=== PATIENT | female | born 1935 | race African-American/Black ===

== ENCOUNTER 2019-01-23 05:52 | Inpatient (IN) ==
[2019-01-23] MEDS ORDERED: diphenhydrAMINE CAP 25 MG CAPSULE PO ONE (05:59)
[2019-01-23] MEDS ORDERED: POTASSIUM CHLORIDE RIDER 10 MEQ in PREMIX 1 EACH IV PRN (05:59)
[2019-01-23] MEDS ORDERED: DIAZEPAM 5 MG TABLET PO ONE (05:59)
[2019-01-23] MEDS ORDERED: MAGNESIUM SULF RIDER 2 GM in PREMIX 1 EACH IV PRN (05:59)
[2019-01-23] MEDS ORDERED: ASPIRIN 325 MG TABLET PO ONE (05:59)
[2019-01-23] MEDS ORDERED: HEPARIN/NACL 0.9% 2 UNITS/ML 1,000 ML IV ONE (06:41)
[2019-01-23] MEDS ORDERED: LIDOCAINE 1% 20 ML VIAL ONE (06:41)
[2019-01-23] MEDS ORDERED: diphenhydrAMINE CAP 25 MG CAPSULE ONE (07:01)
[2019-01-23] MEDS ORDERED: DIAZEPAM 5 MG TABLET ONE (07:01)
[2019-01-23] MEDS ORDERED: ASPIRIN 325 MG TABLET ONE (07:01)
[2019-01-23] MEDS: SODIUM CHLORIDE 0.9% 1,000 ML IV SCH ×3 (07:02→15:05)
[2019-01-23] MEDS ORDERED: HYDROmorphone 2 MG/1 ML VIAL ONE (07:29)
[2019-01-23] MEDS ORDERED: MIDAZOLAM 2 MG/2 ML VIAL ONE (07:56)
[2019-01-23] MEDS ORDERED: ZALEPLON 5 MG CAPSULE PO PRN (08:00)
[2019-01-23] MEDS ORDERED: ONDANSETRON 4 MG/2 ML VIAL IV PRN (08:00)
[2019-01-23] MEDS ORDERED: NITROGLYCERIN SL 0.4 MG TABLET SL PRN (08:00)
[2019-01-23] MEDS: CALCIUM (CARBONATE) 600 MG TABLET PO SCH (15:03)
[2019-01-23] MEDS: ASPIRIN CHEW 81 MG TABLET PO SCH (15:03)
[2019-01-23] MEDS: MULTIVITAMIN (CENTRUM) TABLET PO SCH (15:04)
[2019-01-23] MEDS: GLUCOSAMINE 500 MG TABLET PO SCH (15:04)
[2019-01-23] MEDS: LISINOPRIL/HCTZ 20-12.5 MG TABLET PO SCH ×2 (15:04→21:03)
[2019-01-23] MEDS: OMEGA 3 ACID ETHYL ESTERS 1 GM CAPSULE PO SCH (15:04)
[2019-01-23] MEDS: METOPROLOL SUCCINATE XL 100 MG TABLET PO SCH ×2 (15:05→21:04)
[2019-01-23] MEDS ORDERED: SIMVASTATIN 10 MG TABLET PO SCH (19:00)
[2019-01-23] MEDS ORDERED: POTASSIUM CITRATE 10 MEQ TABLET PO SCH (19:00)
[2019-01-23] MEDS ORDERED: amLODIPine 10 MG TABLET PO SCH (19:00)
[2019-01-23] MEDS: POTASSIUM CITRATE 10 MEQ TABLET PO SCH (21:03)
[2019-01-23] MEDS: SIMVASTATIN 10 MG TABLET PO SCH (21:04)
[2019-01-23] MEDS: amLODIPine 10 MG TABLET PO SCH (21:04)
[2019-01-24] MEDS: SODIUM CHLORIDE 0.9% 1,000 ML IV SCH ×8 (02:38→23:21)
[2019-01-24] MEDS: GLUCOSAMINE 500 MG TABLET PO SCH (08:35)
[2019-01-24] MEDS: CALCIUM (CARBONATE) 600 MG TABLET PO SCH (08:36)
[2019-01-24] MEDS: OMEGA 3 ACID ETHYL ESTERS 1 GM CAPSULE PO SCH (08:36)
[2019-01-24] MEDS: ASPIRIN CHEW 81 MG TABLET PO SCH (08:36)
[2019-01-24] MEDS: METOPROLOL SUCCINATE XL 100 MG TABLET PO SCH ×2 (08:36→20:48)
[2019-01-24] MEDS: LISINOPRIL/HCTZ 20-12.5 MG TABLET PO SCH ×2 (08:36→20:48)
[2019-01-24] MEDS: MULTIVITAMIN (CENTRUM) TABLET PO SCH (08:36)
[2019-01-24] MEDS ORDERED: DEXTROSE 50% 25 GM/50 ML VIAL IV PRN (10:12)
[2019-01-24] MEDS ORDERED: GLUCAGON 1 MG VIAL IM PRN (10:12)
[2019-01-24 10:30] LABS: Basophils # 0.1 10*3/uL (0.0-0.2); Basophils % 0.7 % (0.0-0.8); Eosinophils # 0.2 10*3/uL (0.0-0.87); Eosinophils % 3.2 % (0.00-10.9); Hematocrit 43.3 VOL% (35.7-47.0); Hemoglobin 13.8 GM/DL (12.0-16.0); Immature Granulocytes % 0.6 %; Immature Granulocytes Absolute 0.04 #; Lymphocytes # 1.7 10*3/uL (1.4-4.0); Mean Corpuscular HGB Conc 31.9 GM/DL (32-36); Mean Corpuscular Volume 92.9 FL (87-102); Mean Platelet Volume 11.9 FL (9.6-12.0); Monocytes % 7.7 % (1.7-12.7); Neutrophils % 64.8 % (38.7-73.9); Platelet Count 112 T/CUMM (130-400); Red Blood Count 4.66 MC/CUMM (3.8-5.5); Red Cell Distribution Width 13.1 % (9.3-17.3); White Blood Count 7.2 T/CUMM (4-12)
[2019-01-24 10:42] LABS: Bilirubin,Total 0.6 MG/DL (0.2-1.0); Calcium 8.1 MG/DL (8.5-10.1)
[2019-01-24 10:43] LABS: Albumin 3.4 G/DL (3.4-5.0); Osmolality,Calculated 285.4 MOS/KG (273-304)
[2019-01-24 11:14] LABS: ABG Base Excess 0.1 MMOL/L (-2.5-2.5); ABG HCO3 24.5 MMOL/L (20-26); ABG Oxygen Saturation 96.4 % (95-100); ABG PH 7.414 (7.35-7.45); ABG PO2 84.5 MM HG (80-95); ABG TCO2 20.7 MMOL/L (23-27); Allen Test Positive; Pt O2 Delivery Device Room Air
[2019-01-24] MEDS: CHLORHEXIDINE 4% SOLN 118 ML BOTTLE TOP SCH ×2 (15:30→20:49)
[2019-01-24] MEDS ORDERED: hydrALAZINE 20 MG/1 ML VIAL IV PRN (16:06)
[2019-01-24] MEDS ORDERED: DIAZEPAM 5 MG TABLET PO ONE (16:42)
[2019-01-24] MEDS: amLODIPine 10 MG TABLET PO SCH (20:48)
[2019-01-24] MEDS: CHLORHEXIDINE 0.12% ORAL RINSE 60 ML BOTTLE SWISH/SPIT SCH (20:49)
[2019-01-24] MEDS: SIMVASTATIN 10 MG TABLET PO SCH (20:49)
[2019-01-24] MEDS: POTASSIUM CITRATE 10 MEQ TABLET PO SCH (20:55)
[2019-01-25] MEDS: SODIUM CHLORIDE 0.9% 1,000 ML IV SCH ×4 (02:43→12:21)
[2019-01-25] MEDS ORDERED: PAPAVERINE 60 MG/2 ML VIAL ONE (04:20)
[2019-01-25] MEDS ORDERED: VANCOMYCIN 1,000 MG VIAL ONE (04:21)
[2019-01-25] MEDS: CHLORHEXIDINE 4% SOLN 118 ML BOTTLE TOP SCH ×2 (04:40→12:22)
[2019-01-25] MEDS ORDERED: DIAZEPAM 5 MG TABLET PO ONE (06:00)
[2019-01-25] MEDS ORDERED: MIDAZOLAM 10 MG/2 ML VIAL ONE (06:18)
[2019-01-25] MEDS ORDERED: SUFentanil 250 MCG/5 ML AMP ONE (06:18)
[2019-01-25] MEDS: LISINOPRIL/HCTZ 20-12.5 MG TABLET PO SCH ×2 (06:25→12:21)
[2019-01-25] MEDS: METOPROLOL SUCCINATE XL 100 MG TABLET PO SCH ×2 (06:25→12:21)
[2019-01-25] MEDS ORDERED: CEFUROXIME INJ 1,500 MG in SYRINGE 1 EACH IV ONE (07:00)
[2019-01-25 07:53] LABS: ABG Base Excess -0.3 MMOL/L (-2.5-2.5); ABG HCO3 24.2 MMOL/L (20-26); ABG Oxygen Saturation 99.7 % (95-100); ABG PH 7.424 (7.35-7.45); ABG TCO2 20.2 MMOL/L (23-27); Glucose Heart Surgery 210 MG/DL (74-106); Hematocrit Heart Surgery 43.4 PERCENT (37-47); Hemoglobin Heart Surgery 14.1 G/DL (12.0-16.0); Ionized Calcium Arterial 1.21 MMOL/L (1.21-1.46); PH Patient Temp Arterial 7.424; Patient Temperature 37 CELCIUS; Potassium Heart/CVR 3.3 MMOL/L (3.5-5.1); Sodium Heart/CVR 137 MMOL/L (135-145)
[2019-01-25] MEDS ORDERED: NITROPRUSSIDE 50 MG/2 ML VIAL ONE (07:58)
[2019-01-25] MEDS ORDERED: CALCIUM CHLORIDE 1,000 MG/10 ML SYRINGE IV ONE (07:58)
[2019-01-25] MEDS ORDERED: SODIUM BICARBONATE 50 MEQ/50 ML VIAL IV ONE ×2 (07:58→11:49)
[2019-01-25] MEDS ORDERED: PHENYLEPHRINE DRIP 40 MG/250 ML PREMIX IV ONE (07:58)
[2019-01-25] MEDS ORDERED: EPINEPHrine 1 MG/10 ML SYRINGE ONE (07:59)
[2019-01-25] MEDS ORDERED: ATROPINE 1 MG/10 ML SYRINGE ONE (08:00)
[2019-01-25 08:22] LABS: Apearance,Urine Slightly Hazy (Clear); Bacteria,Urine Moderate /HPF (Few); Bilirubin,Urine Negative (Negative); Blood, Urine Small mg/dL (Negative); Glucose,Urine (UA) Negative (Negative); Ketones,Urine 5 mg/dL (Negative); Mucus,Urine Occasional /LPF (Occasional); Nitrite,Urine Positive (Negative); Protein,Urine 30 MG/DL; RBC,Urine 1 /HPF (0-4); Squamous Epithelial Cell,Urine Few /HPF (0-10); Urine Color Yellow (Yellow); Urine Specific Gravity 1.015 (1.001-1.035); Urine Urobilinogen < 2.0 EU/DL (0.2-1.0); WBC,Urine 6 /HPF (0-6)
[2019-01-25 09:27] LABS: Hematocrit Heart Surgery 23.5 PERCENT (37-47); Hemoglobin Heart Surgery 7.5 G/DL (12.0-16.0); PCO2 Patient Temp Venous 27.6 MM HG; PH Patient Temp Venous 7.517; PO2 Patient Temp Venous 45.2 MM HG; Potassium Heart/CVR 3.8 MMOL/L (3.5-5.1); VBG HCO3 24.3 MEQ/L (24-28); VBG Oxygen Saturation 89.3 %; VBG PCO2 30.4 MMHG (41-51); VBG PH 7.486; VBG PO2 51.7 MMHG (17-40)
[2019-01-25 09:59] LABS: Hemoglobin Heart Surgery 8.5 G/DL (12.0-16.0); PCO2 Patient Temp Venous 24.5 MM HG; PH Patient Temp Venous 7.548; PO2 Patient Temp Venous 44.5 MM HG; Potassium Heart/CVR 3.3 MMOL/L (3.5-5.1); VBG Base Excess -1.3 MEQ/L (0-4); VBG HCO3 21.6 MEQ/L (24-28); VBG Oxygen Saturation 91.1 %; VBG PCO2 29.2 MMHG (41-51); VBG PH 7.487; VBG PO2 58.7 MMHG (17-40)
[2019-01-25 10:25] LABS: Hematocrit Heart Surgery 26.8 PERCENT (37-47); Hemoglobin Heart Surgery 8.6 G/DL (12.0-16.0); PCO2 Patient Temp Venous 30.5 MM HG; PH Patient Temp Venous 7.525; PO2 Patient Temp Venous 45.1 MM HG; Potassium Heart/CVR 4.1 MMOL/L (3.5-5.1); VBG Base Excess 2.7 MEQ/L (0-4); VBG HCO3 26.6 MEQ/L (24-28); VBG Oxygen Saturation 85.3 %; VBG PCO2 30.5 MMHG (41-51); VBG PH 7.525; VBG PO2 45.1 MMHG (17-40)
[2019-01-25 10:58] LABS: Hematocrit Heart Surgery 26.1 PERCENT (37-47); Hemoglobin Heart Surgery 8.4 G/DL (12.0-16.0); PCO2 Patient Temp Venous 31.2 MM HG; PH Patient Temp Venous 7.5; PO2 Patient Temp Venous 46.3 MM HG; Potassium Heart/CVR 3.8 MMOL/L (3.5-5.1); VBG Base Excess 1.6 MEQ/L (0-4); VBG HCO3 25.6 MEQ/L (24-28); VBG Oxygen Saturation 85.4 %; VBG PCO2 31.2 MMHG (41-51); VBG PH 7.5; VBG PO2 46.3 MMHG (17-40)
[2019-01-25 11:35] LABS: ABG Base Excess 0.1 MMOL/L (-2.5-2.5); ABG HCO3 24.6 MMOL/L (20-26); ABG Oxygen Saturation 99.8 % (95-100); ABG PCO2 33.8 MM HG (35-48); ABG PH 7.454 (7.35-7.45); ABG TCO2 21.8 MMOL/L (23-27); Glucose Heart Surgery 275 MG/DL (74-106); Hematocrit Heart Surgery 27.3 PERCENT (37-47); Hemoglobin Heart Surgery 8.8 G/DL (12.0-16.0); Ionized Calcium Arterial 1.27 MMOL/L (1.21-1.46); PCO2 Patient Temp Arterial 33.8 MMHG; PH Patient Temp Arterial 7.454; Patient Temperature 37 CELCIUS; Potassium Heart/CVR 3.5 MMOL/L (3.5-5.1); Sodium Heart/CVR 135 MMOL/L (135-145)
[2019-01-25] MEDS ORDERED: DEXTROSE 5% KCL 20 MEQ 20 MEQ/1,000 ML BAG IV ONE (11:49)
[2019-01-25] MEDS ORDERED: PROTAMINE SULFATE 250 MG/25 ML VIAL IV ONE (11:49)
[2019-01-25] MEDS ORDERED: MANNITOL 100 GM/500 ML BAG IV ONE (11:49)
[2019-01-25] MEDS ORDERED: ALBUMIN 25% 25 GM/100 ML VIAL IV ONE (11:49)
[2019-01-25] MEDS ORDERED: ALBUMIN 5% 12.5 GM/250 ML VIAL IV ONE (11:50)
[2019-01-25] MEDS ORDERED: HEPARIN 10,000 UNIT/10 ML VIAL ONE (11:50)
[2019-01-25] MEDS ORDERED: FUROSEMIDE 20 MG/2 ML VIAL ONE (11:50)
[2019-01-25] MEDS ORDERED: methylPREDNISolone SOD SUC 1,000 MG/8 ML VIAL ONE (11:50)
[2019-01-25] MEDS ORDERED: MAGNESIUM SULFATE 5 GM/10 ML VIAL IV ONE (11:50)
[2019-01-25] MEDS ORDERED: POTASSIUM CHLORIDE RIDER 100 ML IV ONE (11:50)
[2019-01-25] MEDS ORDERED: POTASSIUM CHLORIDE 20 MEQ/10 ML VIAL ONE (11:50)
[2019-01-25] MEDS ORDERED: PROTAMINE SULFATE 50 MG/5 ML VIAL IV ONE (11:50)
[2019-01-25] MEDS: CHLORHEXIDINE 0.12% ORAL RINSE 60 ML BOTTLE SWISH/SPIT SCH ×2 (12:21→21:10)
[2019-01-25] MEDS: ASPIRIN CHEW 81 MG TABLET PO SCH (12:22)
[2019-01-25] MEDS: CALCIUM (CARBONATE) 600 MG TABLET PO SCH (12:22)
[2019-01-25] MEDS: OMEGA 3 ACID ETHYL ESTERS 1 GM CAPSULE PO SCH (12:22)
[2019-01-25] MEDS: GLUCOSAMINE 500 MG TABLET PO SCH (12:22)
[2019-01-25] MEDS: MULTIVITAMIN (CENTRUM) TABLET PO SCH (12:23)
[2019-01-25] MEDS ORDERED: MIDAZOLAM 2 MG/2 ML VIAL IV PRN (13:08)
[2019-01-25] MEDS ORDERED: MIDAZOLAM 10 MG/2 ML VIAL IV PRN (13:08)
[2019-01-25] MEDS ORDERED: MAGNESIUM SULF RIDER 4 GM in PREMIX 1 EACH IV PRN (13:08)
[2019-01-25] MEDS ORDERED: INSULIN REGULAR 100 UNIT/ML IV PRN (13:08)
[2019-01-25] MEDS ORDERED: INSULIN REGULAR 100 UNIT/ML IV ONE (13:08)
[2019-01-25] MEDS ORDERED: PHENYLEPHRINE DRIP 40 MG/250 ML PREMIX IV PRN (13:08)
[2019-01-25] MEDS ORDERED: ONDANSETRON 4 MG/2 ML VIAL IV PRN (13:08)
[2019-01-25] MEDS ORDERED: DEXTROSE 50% 25 GM/50 ML SYRINGE IV PRN ×2 (13:08)
[2019-01-25] MEDS ORDERED: MAGNESIUM SULF RIDER 2 GM in PREMIX 1 EACH IV PRN (13:08)
[2019-01-25] MEDS ORDERED: MORPHINE 4 MG/1 ML VIAL IV PRN (13:08)
[2019-01-25] MEDS ORDERED: NITROPRUSSIDE 100 MG in DEXTROSE 5% 250 ML IV PRN (13:08)
[2019-01-25] MEDS ORDERED: INSULIN REGULAR DRIP 100 ML IV SCH (13:08)
[2019-01-25] MEDS ORDERED: ACETAMINOPHEN 650 MG SUPP RECTAL PRN (13:08)
[2019-01-25] MEDS ORDERED: MORPHINE 10 MG/1 ML VIAL IV PRN (13:08)
[2019-01-25] MEDS ORDERED: POTASSIUM CHLORIDE RIDER 10 MEQ in PREMIX 1 EACH IV PRN (13:08)
[2019-01-25] MEDS ORDERED: VECURONIUM 10 MG VIAL IV PRN ×2 (13:08)
[2019-01-25] MEDS ORDERED: CALCIUM CHLORIDE 1,000 MG/10 ML SYRINGE IV PRN (13:08)
[2019-01-25 13:14] LABS: ABG Base Excess -0.6 MMOL/L (-2.5-2.5); ABG HCO3 23.9 MMOL/L (20-26); ABG Oxygen Saturation 98.9 % (95-100); ABG PCO2 32.8 MM HG (35-48); ABG PH 7.451 (7.35-7.45); ABG TCO2 20.6 MMOL/L (23-27); Glucose Heart Surgery 260 MG/DL (74-106); Hemoglobin Heart Surgery 10.3 G/DL (12.0-16.0); Potassium Heart/CVR 3.5 MMOL/L (3.5-5.1)
[2019-01-25 13:19] LABS: INR 1.3; PT Patient Result 14.5 SECS; Partial Thromboplastin Time 30.3 SECS (0-40)
[2019-01-25 13:21] LABS: Basophils % 0.3 % (0.0-0.8); Eosinophils # 0.1 10*3/uL (0.0-0.87); Eosinophils % 0.7 % (0.00-10.9); Hematocrit 30.3 VOL% (35.7-47.0); Immature Granulocytes % 0.8 %; Lymphocytes # 1.4 10*3/uL (1.4-4.0); Lymphocytes % 10.9 % (21.3-54.2); Mean Corpuscular HGB Conc 33.7 GM/DL (32-36); Mean Corpuscular Volume 90.7 FL (87-102); Mean Platelet Volume 11.3 FL (9.6-12.0); Monocytes % 5.2 % (1.7-12.7); Neutrophils % 82.1 % (38.7-73.9)
[2019-01-25 13:22] LABS: Hemoglobin 10.2 GM/DL (12.0-16.0); Platelet Count 100 T/CUMM (130-400); Red Blood Count 3.34 MC/CUMM (3.8-5.5); White Blood Count 12.4 T/CUMM (4-12)
[2019-01-25] MEDS: SODIUM CHLORIDE 0.45% 1,000 ML IV SCH ×2 (13:27→13:28)
[2019-01-25] MEDS: KETOROLAC 30 MG/1 ML VIAL IV SCH ×2 (13:32→18:11)
[2019-01-25] MEDS ORDERED: LIDOCAINE 1% 5 ML VIAL ONE (13:37)
[2019-01-25] MEDS ORDERED: HEPARIN/NACL 0.9% 2 UNITS/ML 500 ML IV ONE (13:37)
[2019-01-25] MEDS ORDERED: PHENYLEPHRINE DRIP 20 MG/250 ML PREMIX IV ONE (13:37)
[2019-01-25] MEDS ORDERED: SEVOFLURANE 1 UNIT/15 MINUTE INH ONE (13:37)
[2019-01-25] MEDS ORDERED: ETOMIDATE 40 MG/20 ML VIAL IV ONE (13:38)
[2019-01-25] MEDS ORDERED: EPINEPHrine 1 MG/ML VIAL ONE (13:38)
[2019-01-25] MEDS ORDERED: VECURONIUM 10 MG VIAL IV ONE (13:38)
[2019-01-25] MEDS ORDERED: NITROGLYCERIN DRIP 50 MG/250 ML BOTTLE IV ONE (13:38)
[2019-01-25] MEDS ORDERED: SODIUM CHLORIDE 0.9% 1,000 ML IV ONE (13:38)
[2019-01-25] MEDS ORDERED: AMINOCAPROIC ACID 5,000 MG/20 ML VIAL ONE (13:38)
[2019-01-25] MEDS ORDERED: LACTATED RINGERS 2,000 ML IV ONE (13:38)
[2019-01-25] MEDS ORDERED: SODIUM CHLORIDE 0.9% 100 ML IV ONE (13:38)
[2019-01-25] MEDS ORDERED: SODIUM CHLORIDE 0.9% 250 ML IV ONE (13:38)
[2019-01-25 13:41] LABS: Albumin 3.4 G/DL (3.4-5.0); Bilirubin,Total 1.5 MG/DL (0.2-1.0); Calcium 8.5 MG/DL (8.5-10.1); Osmolality,Calculated 285.5 MOS/KG (273-304); Total Protein 5.7 G/DL (6.4-8.3)
[2019-01-25 13:59] LABS: CKMB % 4.3 %
[2019-01-25 14:05] LABS: Troponin I 3.6 NG/ML (0.00-0.045)
[2019-01-25] MEDS: POTASSIUM CHLORIDE RIDER 20 MEQ in PREMIX 1 EACH IV PRN ×3 (14:19→19:01)
[2019-01-25] MEDS ORDERED: NITROGLYCERIN DRIP 50 MG/250 ML BOTTLE IV PRN (14:28)
[2019-01-25] MEDS: ALBUMIN 5% 12.5 GM in PREMIX 1 EACH IV PRN ×6 (14:40→20:07)
[2019-01-25] MEDS: LACTATED RINGERS 250 ML IV PRN ×3 (16:12→18:33)
[2019-01-25 17:33] LABS: ABG Base Excess -0.1 MMOL/L (-2.5-2.5); ABG HCO3 23.5 MMOL/L (20-26); ABG Oxygen Saturation 96.5 % (95-100); ABG PCO2 34.1 MM HG (35-48); ABG PH 7.456 (7.35-7.45); ABG PO2 99.7 MM HG (80-95); ABG TCO2 24.5 MMOL/L (23-27); Glucose Heart Surgery 166 MG/DL (74-106); Hemoglobin Heart Surgery 9.3 G/DL (12.0-16.0); Potassium Heart/CVR 2.8 MMOL/L (3.5-5.1)
[2019-01-25] MEDS ORDERED: methylPREDNISolone SOD SUC 125 MG/2 ML VIAL IV ONE (19:24)
[2019-01-25 19:47] LABS: ABG Base Excess 0.2 MMOL/L (-2.5-2.5); ABG HCO3 24.6 MMOL/L (20-26); ABG Oxygen Saturation 98.7 % (95-100); ABG PCO2 33.8 MM HG (35-48); ABG PH 7.454 (7.35-7.45); ABG TCO2 21.7 MMOL/L (23-27); Glucose Heart Surgery 172 MG/DL (74-106); Hemoglobin Heart Surgery 9.3 G/DL (12.0-16.0); Potassium Heart/CVR 3.9 MMOL/L (3.5-5.1)
[2019-01-25] MEDS ORDERED: methylPREDNISolone SOD SUC 40 MG/1 ML VIAL IV SCH (20:00)
[2019-01-25] MEDS: CEFUROXIME INJ 1,500 MG in SYRINGE 1 EACH IV SCH (21:09)
[2019-01-25 21:44] LABS: ABG Base Excess -0.8 MMOL/L (-2.5-2.5); ABG HCO3 23.8 MMOL/L (20-26); ABG Oxygen Saturation 98.3 % (95-100); ABG PCO2 33.9 MM HG (35-48); ABG PH 7.439 (7.35-7.45); ABG TCO2 21.3 MMOL/L (23-27); Glucose Heart Surgery 149 MG/DL (74-106); Hematocrit Heart Surgery 26.3 PERCENT (37-47); Hemoglobin Heart Surgery 8.5 G/DL (12.0-16.0); Potassium Heart/CVR 3.5 MMOL/L (3.5-5.1)
[2019-01-25] MEDS ORDERED: DOBUTamine 500 MG/250 ML PREMIX IV PRN (22:22)
[2019-01-25] MEDS ORDERED: diphenhydrAMINE 50 MG/1 ML VIAL IV ONE (22:22)
[2019-01-25 22:41] LABS: ABG Base Excess -1.7 MMOL/L (-2.5-2.5); ABG HCO3 22.9 MMOL/L (20-26); ABG Oxygen Saturation 93.9 % (95-100); ABG PCO2 39.1 MM HG (35-48); ABG PH 7.381 (7.35-7.45); ABG PO2 73.7 MM HG (80-95); Glucose Heart Surgery 144 MG/DL (74-106); Hematocrit Heart Surgery 31.8 PERCENT (37-47); Hemoglobin Heart Surgery 10.3 G/DL (12.0-16.0); Potassium Heart/CVR 3.4 MMOL/L (3.5-5.1)
[2019-01-25 23:47] LABS: ABG Base Excess -2.2 MMOL/L (-2.5-2.5); ABG HCO3 22.4 MMOL/L (20-26); ABG Oxygen Saturation 93.2 % (95-100); ABG PCO2 39.6 MM HG (35-48); ABG PH 7.369 (7.35-7.45); ABG TCO2 19.7 MMOL/L (23-27); Glucose Heart Surgery 142 MG/DL (74-106); Hematocrit Heart Surgery 43.7 PERCENT (37-47); Hemoglobin Heart Surgery 14.3 G/DL (12.0-16.0); Potassium Heart/CVR 3.5 MMOL/L (3.5-5.1)
[2019-01-26] MEDS ORDERED: FUROSEMIDE 40 MG/4 ML VIAL IV ONE (00:14)
[2019-01-26] MEDS: ALBUTEROL/IPRATROPIUM 3 ML NEB RESP TX SCH ×4 (00:56→19:29)
[2019-01-26 00:57] LABS: CKMB % 2.3 %
[2019-01-26 01:02] LABS: Troponin I 2.1 NG/ML (0.00-0.045)
[2019-01-26 01:29] LABS: ABG Base Excess -1.4 MMOL/L (-2.5-2.5); ABG HCO3 23.2 MMOL/L (20-26); ABG Oxygen Saturation 94.6 % (95-100); ABG PCO2 38.5 MM HG (35-48); ABG PO2 73.6 MM HG (80-95); ABG TCO2 21.2 MMOL/L (23-27); Glucose Heart Surgery 116 MG/DL (74-106); Hematocrit Heart Surgery 31.7 PERCENT (37-47); Hemoglobin Heart Surgery 10.3 G/DL (12.0-16.0); Potassium Heart/CVR 3.6 MMOL/L (3.5-5.1)
[2019-01-26] MEDS: KETOROLAC 30 MG/1 ML VIAL IV SCH ×4 (02:36→19:00)
[2019-01-26 03:37] LABS: ABG Base Excess 0.7 MMOL/L (-2.5-2.5); ABG HCO3 25.1 MMOL/L (20-26); ABG Oxygen Saturation 97.8 % (95-100); ABG PCO2 38.1 MM HG (35-48); ABG PH 7.425 (7.35-7.45); ABG TCO2 22.6 MMOL/L (23-27); Glucose Heart Surgery 117 MG/DL (74-106); Hematocrit Heart Surgery 31.4 PERCENT (37-47); Hemoglobin Heart Surgery 10.1 G/DL (12.0-16.0); Potassium Heart/CVR 3.6 MMOL/L (3.5-5.1)
[2019-01-26 03:49] LABS: Basophils % 0.1 % (0.0-0.8); Hematocrit 28.9 VOL% (35.7-47.0); Hemoglobin 9.4 GM/DL (12.0-16.0); Immature Granulocytes % 0.4 %; Immature Granulocytes Absolute 0.04 #; Lymphocytes # 0.6 10*3/uL (1.4-4.0); Lymphocytes % 6.3 % (21.3-54.2); Mean Corpuscular HGB Conc 32.5 GM/DL (32-36); Mean Corpuscular Volume 90.6 FL (87-102); Mean Platelet Volume 11.9 FL (9.6-12.0); Monocytes % 6.4 % (1.7-12.7); Neutrophils % 86.8 % (38.7-73.9); Platelet Count 53 T/CUMM (130-400); Red Blood Count 3.19 MC/CUMM (3.8-5.5); Red Cell Distribution Width 14.2 % (9.3-17.3); White Blood Count 9.8 T/CUMM (4-12)
[2019-01-26 04:01] LABS: Albumin 4.1 G/DL (3.4-5.0); Bilirubin,Direct 0.61 MG/DL (0.0-0.20); Bilirubin,Total 1.4 MG/DL (0.2-1.0); Calcium 7.9 MG/DL (8.5-10.1); Total Protein 6.2 G/DL (6.4-8.3)
[2019-01-26 04:10] LABS: CKMB % 3.1 %
[2019-01-26] MEDS: POTASSIUM CHLORIDE RIDER 20 MEQ in PREMIX 1 EACH IV PRN ×3 (04:10→09:08)
[2019-01-26] MEDS: ALBUMIN 5% 12.5 GM in PREMIX 1 EACH IV PRN (04:10)
[2019-01-26] MEDS: methylPREDNISolone SOD SUC 40 MG/1 ML VIAL IV SCH ×3 (04:11→20:25)
[2019-01-26 04:15] LABS: Troponin I 2.49 NG/ML (0.00-0.045)
[2019-01-26] MEDS ORDERED: AMIODARONE INJ 150 MG in DEXTROSE 5% 100 ML IV ONE (05:04)
[2019-01-26 05:22] LABS: Band Neutrophils 1 % (0-10); Lymphocytes 8 % (20-55); Segmented Neutrophils 89 % (50-85); Total Cells Counted 100
[2019-01-26 05:23] LABS: Anisocytosis Slight; Microcytosis Slight
[2019-01-26 05:24] LABS: Platelet Estimate Decreased
[2019-01-26] MEDS ORDERED: AMIODARONE INJ 450 MG in DEXTROSE 5% 241 ML IV SCH (05:30)
[2019-01-26 06:14] LABS: ABG Base Excess -2.1 MMOL/L (-2.5-2.5); ABG HCO3 22.6 MMOL/L (20-26); ABG Oxygen Saturation 96.7 % (95-100); ABG PCO2 35.8 MM HG (35-48); ABG PO2 85.6 MM HG (80-95); ABG TCO2 20.1 MMOL/L (23-27); Glucose Heart Surgery 206 MG/DL (74-106); Hematocrit Heart Surgery 31.3 PERCENT (37-47); Hemoglobin Heart Surgery 10.1 G/DL (12.0-16.0); Potassium Heart/CVR 4.3 MMOL/L (3.5-5.1)
[2019-01-26] MEDS: INSULIN REGULAR 100 UNIT/ML SUBCUT SCH ×5 (07:50→22:35)
[2019-01-26] MEDS: CEFUROXIME INJ 1,500 MG in SYRINGE 1 EACH IV SCH ×2 (08:32→20:25)
[2019-01-26 08:38] LABS: ABG Base Excess 0.6 MMOL/L (-2.5-2.5); ABG HCO3 23.6 MMOL/L (20-26); ABG Oxygen Saturation 93.9 % (95-100); ABG PCO2 32.1 MM HG (35-48); ABG PH 7.485 (7.35-7.45); ABG PO2 72.7 MM HG (80-95); ABG TCO2 24.6 MMOL/L (23-27); Glucose Heart Surgery 162 MG/DL (74-106); Hemoglobin Heart Surgery 10.4 G/DL (12.0-16.0); Potassium Heart/CVR 3.9 MMOL/L (3.5-5.1)
[2019-01-26] MEDS: CHLORHEXIDINE 0.12% ORAL RINSE 60 ML BOTTLE SWISH/SPIT SCH ×2 (09:09→20:26)
[2019-01-26] MEDS ORDERED: LISINOPRIL/HCTZ 20-12.5 MG TABLET PO ONE (09:47)
[2019-01-26] MEDS: CARVEDILOL 3.125 MG TABLET PO SCH ×2 (10:02→20:26)
[2019-01-26 10:12] LABS: ABG Base Excess -0.7 MMOL/L (-2.5-2.5); ABG HCO3 23.7 MMOL/L (20-26); ABG Oxygen Saturation 92.4 % (95-100); ABG PCO2 35.1 MM HG (35-48); ABG PH 7.428 (7.35-7.45); ABG PO2 63.6 MM HG (80-95); Glucose Heart Surgery 199 MG/DL (74-106); Hematocrit Heart Surgery 31.2 PERCENT (37-47); Hemoglobin Heart Surgery 10.1 G/DL (12.0-16.0); Potassium Heart/CVR 4.5 MMOL/L (3.5-5.1)
[2019-01-26] MEDS: LEVOFLOXACIN 500 MG TABLET PO SCH (13:00)
[2019-01-26] MEDS: SODIUM CHLORIDE 0.45% 1,000 ML IV SCH ×2 (13:09→19:02)
[2019-01-26 13:26] LABS: CKMB % 3.6 %
[2019-01-26 13:28] LABS: Troponin I 5.01 NG/ML (0.00-0.045)
[2019-01-26] MEDS ORDERED: hydrALAZINE 20 MG/1 ML VIAL IV PRN (19:44)
[2019-01-26] MEDS: FUROSEMIDE 40 MG/4 ML VIAL IV SCH (20:24)
[2019-01-26] MEDS: LISINOPRIL/HCTZ 20-12.5 MG TABLET PO SCH (20:26)
[2019-01-26] MEDS: SIMVASTATIN 10 MG TABLET PO SCH (20:26)
[2019-01-26] MEDS: amLODIPine 10 MG TABLET PO SCH (20:26)
[2019-01-26] MEDS ORDERED: METOPROLOL SUCCINATE XL 100 MG TABLET PO SCH (21:00)
[2019-01-27] MEDS: INSULIN REGULAR 100 UNIT/ML SUBCUT SCH ×7 (01:28→23:28)
[2019-01-27] MEDS: ALBUTEROL/IPRATROPIUM 3 ML NEB RESP TX SCH ×4 (01:53→19:00)
[2019-01-27] MEDS: methylPREDNISolone SOD SUC 40 MG/1 ML VIAL IV SCH ×2 (04:50→12:59)
[2019-01-27 06:00] LABS: Basophils % 0.1 % (0.0-0.8); Hematocrit 35.1 VOL% (35.7-47.0); Hemoglobin 11.6 GM/DL (12.0-16.0); Immature Granulocytes % 0.8 %; Immature Granulocytes Absolute 0.14 #; Lymphocytes # 0.7 10*3/uL (1.4-4.0); Lymphocytes % 4.2 % (21.3-54.2); Mean Corpuscular Volume 90.7 FL (87-102); Mean Platelet Volume 12.2 FL (9.6-12.0); Monocytes % 5.1 % (1.7-12.7); Neutrophils % 89.8 % (38.7-73.9); Platelet Count 68 T/CUMM (130-400); Red Blood Count 3.87 MC/CUMM (3.8-5.5); Red Cell Distribution Width 14.7 % (9.3-17.3); White Blood Count 17.6 T/CUMM (4-12)
[2019-01-27 06:22] LABS: Anisocytosis 1+; Lymphocytes 5 % (20-55); Segmented Neutrophils 90 % (50-85); Total Cells Counted 100
[2019-01-27 06:23] LABS: Albumin 4.3 G/DL (3.4-5.0); Bilirubin,Direct 0.26 MG/DL (0.0-0.20); Bilirubin,Total 0.9 MG/DL (0.2-1.0); Calcium 8.8 MG/DL (8.5-10.1); Hypochromasia Slight; Microcytosis Slight; Osmolality,Calculated 282.5 MOS/KG (273-304); Platelet Estimate Decreased; Total Protein 7.1 G/DL (6.4-8.3)
[2019-01-27] MEDS: POTASSIUM CHLORIDE RIDER 20 MEQ in PREMIX 1 EACH IV PRN (06:32)
[2019-01-27] MEDS: FUROSEMIDE 40 MG/4 ML VIAL IV SCH (09:57)
[2019-01-27] MEDS: ASPIRIN CHEW 81 MG TABLET PO SCH (09:58)
[2019-01-27] MEDS: LEVOFLOXACIN 500 MG TABLET PO SCH (09:58)
[2019-01-27] MEDS: MULTIVITAMIN (CENTRUM) TABLET PO SCH (09:58)
[2019-01-27] MEDS: OMEGA 3 ACID ETHYL ESTERS 1 GM CAPSULE PO SCH (09:58)
[2019-01-27] MEDS: CHLORHEXIDINE 0.12% ORAL RINSE 60 ML BOTTLE SWISH/SPIT SCH ×2 (09:58→20:20)
[2019-01-27] MEDS: LISINOPRIL/HCTZ 20-12.5 MG TABLET PO SCH ×2 (09:58→20:19)
[2019-01-27] MEDS: CARVEDILOL 6.25 MG TABLET PO SCH ×2 (09:58→17:34)
[2019-01-27] MEDS: SODIUM CHLORIDE 0.45% 1,000 ML IV SCH ×2 (12:59→13:00)
[2019-01-27] MEDS ORDERED: SODIUM CHLOR 0.45% KCL 20 MEQ 20 MEQ/1,000 ML BAG IV SCH (15:09)
[2019-01-27] MEDS ORDERED: ACETAMINOPHEN 325 MG TABLET PO PRN (15:09)
[2019-01-27] MEDS ORDERED: KETOROLAC 30 MG/1 ML VIAL IV PRN (15:09)
[2019-01-27] MEDS ORDERED: ZALEPLON 5 MG CAPSULE PO PRN (15:09)
[2019-01-27] MEDS ORDERED: DEXTROSE 50% 25 GM/50 ML SYRINGE IV PRN ×2 (15:09)
[2019-01-27] MEDS ORDERED: ALUMINUM/MAGNES/SIMETH MAX STR 30 ML UDCUP PO PRN (15:09)
[2019-01-27] MEDS ORDERED: GLUCAGON 1 MG VIAL IM PRN ×2 (15:09)
[2019-01-27] MEDS ORDERED: MAGNESIUM SULF RIDER 2 GM in PREMIX 1 EACH IV PRN (15:09)
[2019-01-27] MEDS ORDERED: ONDANSETRON 4 MG/2 ML VIAL IV PRN (15:09)
[2019-01-27] MEDS ORDERED: MAGNESIUM SULF RIDER 4 GM in PREMIX 1 EACH IV PRN (15:09)
[2019-01-27] MEDS ORDERED: DEXTROSE 50% 25 GM/50 ML VIAL IV PRN (16:57)
[2019-01-27] MEDS: SIMVASTATIN 10 MG TABLET PO SCH (20:20)
[2019-01-27] MEDS: amLODIPine 10 MG TABLET PO SCH (20:20)
[2019-01-28] MEDS: ALBUTEROL/IPRATROPIUM 3 ML NEB RESP TX SCH ×4 (00:15→18:56)
[2019-01-28 03:33] LABS: Basophils % 0.2 % (0.0-0.8); Hematocrit 34.9 VOL% (35.7-47.0); Hemoglobin 11.2 GM/DL (12.0-16.0); Immature Granulocytes % 0.7 %; Immature Granulocytes Absolute 0.11 #; Lymphocytes # 0.9 10*3/uL (1.4-4.0); Lymphocytes % 5.9 % (21.3-54.2); Mean Corpuscular HGB Conc 32.1 GM/DL (32-36); Mean Corpuscular Volume 92.1 FL (87-102); Mean Platelet Volume 12.3 FL (9.6-12.0); Monocytes % 6.2 % (1.7-12.7); NRBC # 0.02 10*3/uL; Platelet Count 87 T/CUMM (130-400); Red Blood Count 3.79 MC/CUMM (3.8-5.5); Red Cell Distribution Width 14.5 % (9.3-17.3)
[2019-01-28 03:51] LABS: Albumin 3.4 G/DL (3.4-5.0); Bilirubin,Direct 0.21 MG/DL (0.0-0.20); Bilirubin,Indirect 0.4 MG/DL (0.0-1.0); Bilirubin,Total 0.6 MG/DL (0.2-1.0); CKMB % 0.8 %; Calcium 8.7 MG/DL (8.5-10.1); Osmolality,Calculated 289.4 MOS/KG (273-304); Total Protein 6.3 G/DL (6.4-8.3)
[2019-01-28 03:53] LABS: Troponin I 2.88 NG/ML (0.00-0.045)
[2019-01-28] MEDS: INSULIN REGULAR 100 UNIT/ML SUBCUT SCH ×5 (04:03→20:21)
[2019-01-28 04:42] LABS: Anisocytosis 1+; Hypochromasia 1+; Microcytosis 1+; Platelet Estimate Decreased
[2019-01-28] MEDS: POTASSIUM CHLORIDE 20 MEQ TABLET PO PRN ×2 (05:13→06:15)
[2019-01-28] MEDS ORDERED: FUROSEMIDE 40 MG/4 ML VIAL IV ONE (06:00)
[2019-01-28] MEDS: ASPIRIN CHEW 81 MG TABLET PO SCH (10:02)
[2019-01-28] MEDS: FUROSEMIDE 40 MG/4 ML VIAL IV SCH (10:03)
[2019-01-28] MEDS: MULTIVITAMIN (CENTRUM) TABLET PO SCH (10:03)
[2019-01-28] MEDS: DOCUSATE SODIUM 100 MG CAPSULE PO SCH (10:03)
[2019-01-28] MEDS: LEVOFLOXACIN 500 MG TABLET PO SCH (10:03)
[2019-01-28] MEDS: OMEGA 3 ACID ETHYL ESTERS 1 GM CAPSULE PO SCH (10:03)
[2019-01-28] MEDS: CARVEDILOL 12.5 MG TABLET PO SCH ×2 (10:03→20:16)
[2019-01-28] MEDS: LISINOPRIL/HCTZ 20-12.5 MG TABLET PO SCH ×2 (10:04→20:16)
[2019-01-28] MEDS: PANTOPRAZOLE 40 MG TABLET PO SCH (10:04)
[2019-01-28] MEDS: CHLORHEXIDINE 0.12% ORAL RINSE 60 ML BOTTLE SWISH/SPIT SCH ×2 (10:04→20:16)
[2019-01-28] MEDS: FERROUS SULFATE 325 MG TABLET PO SCH (10:05)
[2019-01-28] MEDS: amLODIPine 10 MG TABLET PO SCH (20:16)
[2019-01-28] MEDS: SIMVASTATIN 10 MG TABLET PO SCH (20:16)
[2019-01-29] MEDS: ALBUTEROL/IPRATROPIUM 3 ML NEB RESP TX SCH ×5 (00:04→23:59)
[2019-01-29 04:27] LABS: Basophils % 0.1 % (0.0-0.8); Eosinophils % 0.1 % (0.00-10.9); Hematocrit 37.5 VOL% (35.7-47.0); Hemoglobin 11.9 GM/DL (12.0-16.0); Immature Granulocytes % 0.7 %; Immature Granulocytes Absolute 0.09 #; Lymphocytes # 2.2 10*3/uL (1.4-4.0); Lymphocytes % 16.3 % (21.3-54.2); Mean Corpuscular HGB Conc 31.7 GM/DL (32-36); Mean Corpuscular Volume 93.3 FL (87-102); Mean Platelet Volume 11.5 FL (9.6-12.0); Monocytes % 6.5 % (1.7-12.7); NRBC # 0.06 10*3/uL; Neutrophils % 76.3 % (38.7-73.9); Platelet Count 117 T/CUMM (130-400); Red Blood Count 4.02 MC/CUMM (3.8-5.5); Red Cell Distribution Width 14.1 % (9.3-17.3); White Blood Count 13.6 T/CUMM (4-12)
[2019-01-29 05:18] LABS: Albumin 3.5 G/DL (3.4-5.0); Bilirubin,Direct 0.2 MG/DL (0.0-0.20); Bilirubin,Indirect 0.7 MG/DL (0.0-1.0); Bilirubin,Total 0.9 MG/DL (0.2-1.0); CKMB % 0.6 %; Calcium 7.9 MG/DL (8.5-10.1); Osmolality,Calculated 292.4 MOS/KG (273-304); Total Protein 6.6 G/DL (6.4-8.3)
[2019-01-29 05:21] LABS: Troponin I 2.16 NG/ML (0.00-0.045)
[2019-01-29] MEDS: LISINOPRIL/HCTZ 20-12.5 MG TABLET PO SCH ×2 (08:34→20:19)
[2019-01-29] MEDS: MULTIVITAMIN (CENTRUM) TABLET PO SCH (08:34)
[2019-01-29] MEDS: DOCUSATE SODIUM 100 MG CAPSULE PO SCH (08:35)
[2019-01-29] MEDS: OMEGA 3 ACID ETHYL ESTERS 1 GM CAPSULE PO SCH (08:35)
[2019-01-29] MEDS: ASPIRIN CHEW 81 MG TABLET PO SCH (08:35)
[2019-01-29] MEDS: PANTOPRAZOLE 40 MG TABLET PO SCH (08:35)
[2019-01-29] MEDS: CARVEDILOL 25 MG TABLET PO SCH ×2 (08:35→20:18)
[2019-01-29] MEDS: INSULIN REGULAR 100 UNIT/ML SUBCUT SCH ×4 (08:36→20:18)
[2019-01-29] MEDS: FERROUS SULFATE 325 MG TABLET PO SCH (08:37)
[2019-01-29] MEDS: FUROSEMIDE 40 MG/4 ML VIAL IV SCH (08:37)
[2019-01-29] MEDS: MAGNESIUM HYDROXIDE SUSP 30 ML UDCUP PO PRN (08:37)
[2019-01-29] MEDS: CHLORHEXIDINE 0.12% ORAL RINSE 60 ML BOTTLE SWISH/SPIT SCH ×2 (08:37→20:19)
[2019-01-29] MEDS: LEVOFLOXACIN 500 MG TABLET PO SCH (09:25)
[2019-01-29] MEDS: oxyCODONE/ACETAMINOPHEN 5-325 MG TABLET PO PRN (14:20)
[2019-01-29] MEDS ORDERED: CLORAZEPATE 3.75 MG TABLET PO PRN (14:25)
[2019-01-29] MEDS: amLODIPine 10 MG TABLET PO SCH (20:18)
[2019-01-29] MEDS: SIMVASTATIN 10 MG TABLET PO SCH (20:18)
[2019-01-30] MEDS: ALBUTEROL/IPRATROPIUM 3 ML NEB RESP TX SCH ×3 (07:26→20:48)
[2019-01-30] MEDS: PANTOPRAZOLE 40 MG TABLET PO SCH (08:54)
[2019-01-30] MEDS: LEVOFLOXACIN 500 MG TABLET PO SCH (08:54)
[2019-01-30] MEDS: DOCUSATE SODIUM 100 MG CAPSULE PO SCH (08:54)
[2019-01-30] MEDS: MULTIVITAMIN (CENTRUM) TABLET PO SCH (08:54)
[2019-01-30] MEDS: ASPIRIN CHEW 81 MG TABLET PO SCH (08:55)
[2019-01-30] MEDS: OMEGA 3 ACID ETHYL ESTERS 1 GM CAPSULE PO SCH (08:55)
[2019-01-30] MEDS: POTASSIUM CHLORIDE 20 MEQ TABLET PO PRN ×2 (08:55→11:51)
[2019-01-30] MEDS: CARVEDILOL 25 MG TABLET PO SCH ×2 (08:55→21:25)
[2019-01-30] MEDS: LISINOPRIL/HCTZ 20-12.5 MG TABLET PO SCH ×2 (08:55→21:24)
[2019-01-30] MEDS: FERROUS SULFATE 325 MG TABLET PO SCH (08:56)
[2019-01-30] MEDS: INSULIN REGULAR 100 UNIT/ML SUBCUT SCH ×4 (08:56→21:57)
[2019-01-30] MEDS: FUROSEMIDE 40 MG/4 ML VIAL IV SCH (08:56)
[2019-01-30] MEDS: CHLORHEXIDINE 0.12% ORAL RINSE 60 ML BOTTLE SWISH/SPIT SCH ×2 (08:57→21:26)
[2019-01-30] MEDS: MAGNESIUM HYDROXIDE SUSP 30 ML UDCUP PO PRN (09:02)
[2019-01-30] MEDS: SIMVASTATIN 10 MG TABLET PO SCH (21:25)
[2019-01-30] MEDS: amLODIPine 10 MG TABLET PO SCH (21:26)
[2019-01-31] MEDS: ALBUTEROL/IPRATROPIUM 3 ML NEB RESP TX SCH ×4 (01:22→21:01)
[2019-01-31 05:05] LABS: Basophils % 0.1 % (0.0-0.8); Eosinophils % 0.3 % (0.00-10.9); Hematocrit 35.1 VOL% (35.7-47.0); Hemoglobin 11.1 GM/DL (12.0-16.0); Immature Granulocytes % 1.1 %; Immature Granulocytes Absolute 0.13 #; Lymphocytes # 2.2 10*3/uL (1.4-4.0); Lymphocytes % 18.8 % (21.3-54.2); Mean Corpuscular HGB Conc 31.6 GM/DL (32-36); Mean Corpuscular Volume 93.9 FL (87-102); Mean Platelet Volume 11.2 FL (9.6-12.0); Monocytes % 6.7 % (1.7-12.7); Platelet Count 151 T/CUMM (130-400); Red Blood Count 3.74 MC/CUMM (3.8-5.5); Red Cell Distribution Width 13.8 % (9.3-17.3); White Blood Count 11.6 T/CUMM (4-12)
[2019-01-31 05:34] LABS: Alanine Aminotransferase 36 U/L (13-56); Albumin 3.1 G/DL (3.4-5.0); Alkaline Phosphatase 47 U/L (45-117); Aspartate Amino Transferase 31 U/L (0-37); Bilirubin,Indirect 0.5 MG/DL (0.0-1.0); Blood Urea Nitrogen 48 MG/DL (7-18); Calcium 8.5 MG/DL (8.5-10.1); Glucose 130 MG/DL (74-106); Osmolality,Calculated 297.1 MOS/KG (273-304); Total Protein 6.1 G/DL (6.4-8.3)
[2019-01-31] MEDS: CARVEDILOL 25 MG TABLET PO SCH ×2 (09:33→21:37)
[2019-01-31] MEDS: LEVOFLOXACIN 500 MG TABLET PO SCH (09:33)
[2019-01-31] MEDS: MULTIVITAMIN (CENTRUM) TABLET PO SCH (09:33)
[2019-01-31] MEDS: DOCUSATE SODIUM 100 MG CAPSULE PO SCH (09:33)
[2019-01-31] MEDS: OMEGA 3 ACID ETHYL ESTERS 1 GM CAPSULE PO SCH (09:33)
[2019-01-31] MEDS: PANTOPRAZOLE 40 MG TABLET PO SCH (09:33)
[2019-01-31] MEDS: FERROUS SULFATE 325 MG TABLET PO SCH (09:33)
[2019-01-31] MEDS: INSULIN REGULAR 100 UNIT/ML SUBCUT SCH ×4 (09:33→21:40)
[2019-01-31] MEDS: ASPIRIN CHEW 81 MG TABLET PO SCH (09:33)
[2019-01-31] MEDS: CHLORHEXIDINE 0.12% ORAL RINSE 60 ML BOTTLE SWISH/SPIT SCH ×2 (09:34→21:45)
[2019-01-31] MEDS: FUROSEMIDE 40 MG/4 ML VIAL IV SCH (09:34)
[2019-01-31] MEDS: LACTULOSE 20 GM/30 ML UDCUP PO PRN ×2 (13:17→18:28)
[2019-01-31] MEDS: amLODIPine 10 MG TABLET PO SCH (21:37)
[2019-01-31] MEDS: SIMVASTATIN 10 MG TABLET PO SCH (21:38)
[2019-02-01] MEDS: ALBUTEROL/IPRATROPIUM 3 ML NEB RESP TX SCH ×4 (01:54→19:45)
[2019-02-01 06:00] LABS: Basophils % 0.1 % (0.0-0.8); Eosinophils % 0.4 % (0.00-10.9); Hematocrit 35.1 VOL% (35.7-47.0); Hemoglobin 10.8 GM/DL (12.0-16.0); Immature Granulocytes % 0.9 %; Lymphocytes # 1.8 10*3/uL (1.4-4.0); Lymphocytes % 16.3 % (21.3-54.2); Mean Corpuscular HGB Conc 30.8 GM/DL (32-36); Mean Corpuscular Volume 96.2 FL (87-102); Mean Platelet Volume 11.2 FL (9.6-12.0); Monocytes % 7.5 % (1.7-12.7); Neutrophils % 74.8 % (38.7-73.9); Platelet Count 158 T/CUMM (130-400); Red Blood Count 3.65 MC/CUMM (3.8-5.5); Red Cell Distribution Width 14.1 % (9.3-17.3); White Blood Count 11.1 T/CUMM (4-12)
[2019-02-01 06:29] LABS: Alanine Aminotransferase 39 U/L (13-56); Albumin 2.8 G/DL (3.4-5.0); Alkaline Phosphatase 43 U/L (45-117); Aspartate Amino Transferase 30 U/L (0-37); Bilirubin,Indirect 0.5 MG/DL (0.0-1.0); Blood Urea Nitrogen 48 MG/DL (7-18); Calcium 8.6 MG/DL (8.5-10.1); Glucose 124 MG/DL (74-106); Osmolality,Calculated 294.3 MOS/KG (273-304); Total Protein 6.1 G/DL (6.4-8.3)
[2019-02-01 06:33] LABS: Troponin I 0.481 NG/ML (0.00-0.045)
[2019-02-01] MEDS: INSULIN REGULAR 100 UNIT/ML SUBCUT SCH ×4 (09:20→20:45)
[2019-02-01] MEDS: DOCUSATE SODIUM 100 MG CAPSULE PO SCH (09:30)
[2019-02-01] MEDS: CARVEDILOL 25 MG TABLET PO SCH ×2 (09:30→21:06)
[2019-02-01] MEDS: PANTOPRAZOLE 40 MG TABLET PO SCH (09:30)
[2019-02-01] MEDS: FERROUS SULFATE 325 MG TABLET PO SCH (09:30)
[2019-02-01] MEDS: ASPIRIN CHEW 81 MG TABLET PO SCH (09:30)
[2019-02-01] MEDS: LEVOFLOXACIN 500 MG TABLET PO SCH (09:30)
[2019-02-01] MEDS: OMEGA 3 ACID ETHYL ESTERS 1 GM CAPSULE PO SCH (09:30)
[2019-02-01] MEDS: MULTIVITAMIN (CENTRUM) TABLET PO SCH (09:31)
[2019-02-01] MEDS: CHLORHEXIDINE 0.12% ORAL RINSE 60 ML BOTTLE SWISH/SPIT SCH ×2 (09:31→21:11)
[2019-02-01] MEDS: FUROSEMIDE 40 MG/4 ML VIAL IV SCH (09:33)
[2019-02-01] MEDS: oxyCODONE/ACETAMINOPHEN 5-325 MG TABLET PO PRN (12:43)
[2019-02-01] MEDS: amLODIPine 10 MG TABLET PO SCH (21:06)
[2019-02-01] MEDS: SIMVASTATIN 10 MG TABLET PO SCH (21:06)
[2019-02-02] MEDS: ALBUTEROL/IPRATROPIUM 3 ML NEB RESP TX SCH ×4 (02:04→19:13)
[2019-02-02] MEDS: MULTIVITAMIN (CENTRUM) TABLET PO SCH (08:48)
[2019-02-02] MEDS: ASPIRIN CHEW 81 MG TABLET PO SCH (08:48)
[2019-02-02] MEDS: DOCUSATE SODIUM 100 MG CAPSULE PO SCH (08:48)
[2019-02-02] MEDS: OMEGA 3 ACID ETHYL ESTERS 1 GM CAPSULE PO SCH (08:48)
[2019-02-02] MEDS: FERROUS SULFATE 325 MG TABLET PO SCH (08:49)
[2019-02-02] MEDS: FUROSEMIDE 40 MG/4 ML VIAL IV SCH (08:49)
[2019-02-02] MEDS: PANTOPRAZOLE 40 MG TABLET PO SCH (08:49)
[2019-02-02] MEDS: LEVOFLOXACIN 500 MG TABLET PO SCH (08:49)
[2019-02-02] MEDS: CARVEDILOL 25 MG TABLET PO SCH ×2 (08:52→21:03)
[2019-02-02] MEDS: CHLORHEXIDINE 0.12% ORAL RINSE 60 ML BOTTLE SWISH/SPIT SCH ×2 (08:52→21:04)
[2019-02-02] MEDS: INSULIN REGULAR 100 UNIT/ML SUBCUT SCH ×4 (08:53→21:03)
[2019-02-02] MEDS: amLODIPine 10 MG TABLET PO SCH (21:02)
[2019-02-02] MEDS: SIMVASTATIN 10 MG TABLET PO SCH (21:03)
[2019-02-03] MEDS: ALBUTEROL/IPRATROPIUM 3 ML NEB RESP TX SCH ×4 (00:32→19:36)
[2019-02-03 05:02] LABS: Basophils % 0.1 % (0.0-0.8); Eosinophils % 0.2 % (0.00-10.9); Hematocrit 35.3 VOL% (35.7-47.0); Hemoglobin 11.1 GM/DL (12.0-16.0); Lymphocytes # 1.9 10*3/uL (1.4-4.0); Lymphocytes % 18.7 % (21.3-54.2); Mean Corpuscular HGB Conc 31.4 GM/DL (32-36); Mean Corpuscular Volume 94.6 FL (87-102); Mean Platelet Volume 11.9 FL (9.6-12.0); Monocytes % 8.3 % (1.7-12.7); Neutrophils % 71.7 % (38.7-73.9); Platelet Count 164 T/CUMM (130-400); Red Blood Count 3.73 MC/CUMM (3.8-5.5); Red Cell Distribution Width 14.1 % (9.3-17.3); White Blood Count 9.9 T/CUMM (4-12)
[2019-02-03 05:41] LABS: Calcium 8.8 MG/DL (8.5-10.1); Osmolality,Calculated 295.1 MOS/KG (273-304)
[2019-02-03] MEDS ORDERED: FUROSEMIDE 40 MG/4 ML VIAL IM SCH (08:10)
[2019-02-03] MEDS: FUROSEMIDE 40 MG TABLET PO SCH (09:43)
[2019-02-03] MEDS: OMEGA 3 ACID ETHYL ESTERS 1 GM CAPSULE PO SCH (09:43)
[2019-02-03] MEDS: PANTOPRAZOLE 40 MG TABLET PO SCH (09:43)
[2019-02-03] MEDS: INSULIN REGULAR 100 UNIT/ML SUBCUT SCH ×4 (09:43→20:52)
[2019-02-03] MEDS: MULTIVITAMIN (CENTRUM) TABLET PO SCH (09:43)
[2019-02-03] MEDS: DOCUSATE SODIUM 100 MG CAPSULE PO SCH (09:44)
[2019-02-03] MEDS: FERROUS SULFATE 325 MG TABLET PO SCH (09:44)
[2019-02-03] MEDS: CARVEDILOL 25 MG TABLET PO SCH ×2 (09:44→20:52)
[2019-02-03] MEDS: CHLORHEXIDINE 0.12% ORAL RINSE 60 ML BOTTLE SWISH/SPIT SCH ×2 (09:44→20:53)
[2019-02-03] MEDS: ASPIRIN CHEW 81 MG TABLET PO SCH (09:44)
[2019-02-03] MEDS: LEVOFLOXACIN 500 MG TABLET PO SCH (09:44)
[2019-02-03] MEDS: amLODIPine 10 MG TABLET PO SCH (20:52)
[2019-02-03] MEDS: SIMVASTATIN 10 MG TABLET PO SCH (20:52)
[2019-02-04] MEDS: ALBUTEROL/IPRATROPIUM 3 ML NEB RESP TX SCH ×2 (01:30→07:08)
[2019-02-04 06:18] LABS: Basophils % 0.2 % (0.0-0.8); Eosinophils % 0.1 % (0.00-10.9); Hematocrit 35.5 VOL% (35.7-47.0); Immature Granulocytes % 0.9 %; Immature Granulocytes Absolute 0.09 #; Lymphocytes # 1.9 10*3/uL (1.4-4.0); Lymphocytes % 18.3 % (21.3-54.2); Mean Corpuscular Volume 95.9 FL (87-102); Mean Platelet Volume 11.8 FL (9.6-12.0); Monocytes % 7.2 % (1.7-12.7); Neutrophils % 73.3 % (38.7-73.9); Platelet Count 138 T/CUMM (130-400); Red Cell Distribution Width 14.1 % (9.3-17.3); White Blood Count 10.4 T/CUMM (4-12)
[2019-02-04 06:36] LABS: Calcium 9.2 MG/DL (8.5-10.1); Osmolality,Calculated 291.3 MOS/KG (273-304)
[2019-02-04] MEDS: INSULIN REGULAR 100 UNIT/ML SUBCUT SCH ×2 (09:20→11:46)
[2019-02-04] MEDS: LEVOFLOXACIN 500 MG TABLET PO SCH (09:21)
[2019-02-04] MEDS: DOCUSATE SODIUM 100 MG CAPSULE PO SCH (09:21)
[2019-02-04] MEDS: OMEGA 3 ACID ETHYL ESTERS 1 GM CAPSULE PO SCH (09:21)
[2019-02-04] MEDS: FUROSEMIDE 40 MG TABLET PO SCH (09:21)
[2019-02-04] MEDS: PANTOPRAZOLE 40 MG TABLET PO SCH (09:22)
[2019-02-04] MEDS: MULTIVITAMIN (CENTRUM) TABLET PO SCH (09:22)
[2019-02-04] MEDS: ASPIRIN CHEW 81 MG TABLET PO SCH (09:22)
[2019-02-04] MEDS: FERROUS SULFATE 325 MG TABLET PO SCH (09:22)
[2019-02-04] MEDS: CARVEDILOL 25 MG TABLET PO SCH (09:22)
[2019-02-04] MEDS: CHLORHEXIDINE 0.12% ORAL RINSE 60 ML BOTTLE SWISH/SPIT SCH (09:23)
[2019-02-04 12:10] VITALS: BP 162/82
== END 2019-02-04 12:59 | disposition home health service (06) | DRG 234 ==
LOC: N.CL 05:52 → N.TELEN 12:58 → N.CVR 01-25 07:10 → N.ICU 01-26 12:13 → N.TELES 01-28 21:17
PROVIDERS: ADMIT Internal Medicine Cardiovascular Disease; ATTEND Internal Medicine Cardiovascular Disease